=== PATIENT | male | born 1940 | race Caucasian/White ===

== ENCOUNTER 2018-01-21 11:56 | Outpatient (CLI) | payer MEDICARE ==
--- NOTE | 2018-01-21 13:02 | XRAY Report ---
Reason: TRAUMA PAIN, DECREASE ROM Procedure Date: 01/21/2018 Accession Number: [id number] / [id number] Procedure: XR - Hand 3 View LT CPT Code: FULL RESULT: EXAM: LEFT HAND RADIOGRAPHY EXAM DATE: 01/21/2018 12:36 PM. CLINICAL HISTORY: Trauma pain, decrease range of motion. COMPARISON: XR HAND 2 VIEW 08/16/2006 9:50 AM. TECHNIQUE: 3 views. FINDINGS: Bones: There is no acute fracture, dislocation or subluxation. Joints: There is degenerative joint space narrowing and mild osteophyte of the IP and DIP joints of the digits with prominent involvement of the IP joint of the second digit. There is degenerative joint space narrowing at the base of thumb and of the STT joint. Soft Tissues: There is mild focal soft tissue swelling noted around the second digit IP joint. There is a stable particulate radiopaque foreign body in the thenar soft tissues. IMPRESSION: 1. No acute fracture. 2. Degenerative changes with greatest involvement of the second digit IP joint likely explaining chronic finger pain. RADIA
== END 2018-01-21 11:57 | disposition home or self-care (01) ==
LOC: DI 11:56
PROVIDERS: ATTEND Physician Assistant
DX: M19.042 Primary osteoarthritis, left hand (principal)

== ENCOUNTER 2019-03-16 09:25 | Outpatient (CLI) | payer MEDICARE, OTHER ==
[2019-03-16] MEDS ORDERED: IOVERSOL 320 100 ML VIAL IVP ONE ×2 (09:34→11:04)
[2019-03-16] MEDS ORDERED: IOVERSOL 320 50 ML VIAL ONE (09:34)
[2019-03-16 09:52] LABS: CREATININE 1.2 mg/dL (0.6-1.2)
[2019-03-16] MEDS ORDERED: IOVERSOL 320 50 ML VIAL PO ONE (11:04)
--- NOTE | 2019-03-16 13:29 | CT Report ---
Reason: PROSTATE CANCER Procedure Date: 03/16/2019 Accession Number: [id number] / [id number] Procedure: CT - Abdomen/Pelvis W CPT Code: Final Report FULL RESULT: EXAM: CT ABDOMEN AND PELVIS EXAM DATE: 03/16/2019 11:00 AM. CLINICAL HISTORY: Prostate cancer. COMPARISONS: None. TECHNIQUE: Routine helical CT imaging was performed through the abdomen and pelvis. IV contrast: OPTI 320, 100 mL. Enteric contrast: Yes. Reconstructions: Coronal and sagittal. In accordance with CT protocol optimization, one or more of the following dose reduction techniques were utilized for this exam: automated exposure control, adjustment of mA and/or KV based on patient size, or use of iterative reconstructive technique. FINDINGS: Lung Bases: There is a 0.7 cm nodule at the right lung base. Liver: Normal. No masses. Gallbladder/Bile Ducts: Unremarkable. Spleen: Normal. Pancreas: Normal. Adrenal Glands: Normal. Kidneys: Mild bilateral cortical thinning without hydronephrosis or calculi detected. There is a left renal cyst as well as a left renal hypodensity which is too small to characterize. Peritoneal Cavity/Bowel: There is a large hiatal hernia. There is no bowel obstruction. There is no free fluid or free air. A 5 mm retroperitoneal nodule anterior to the left iliac vasculature as seen on image 63 series 3 is nonspecific and does not meet size criteria. There is no lymphadenopathy by size criteria. The appendix is well visualized and normal. Pelvic Organs: A few bilateral iliac lymph nodes are seen which measure less than 1 cm short axis. The prostate is partially calcified enlarging size lifting the bladder base. Vasculature: Mild to moderate abdominal atherosclerosis without overt aneurysm. Bones: No aggressive osseous lesions are detected. Other: None. IMPRESSION: Right lung base nodule, 0.7 cm. Nonspecific 5 mm nodule in the pelvic retroperitoneum without lymphadenopathy by size criteria. RADIA
--- NOTE | 2019-03-16 16:51 | Nuclear Medicine Report ---
Reason: PROSTATE CANCER Procedure Date: 03/16/2019 Accession Number: [id number] / [id number] Procedure: NM - Bone Whole Body CPT Code: Final Report FULL RESULT: EXAM: BONE SCAN EXAM DATE: 03/16/2019 02:20 PM. CLINICAL HISTORY: Prostate cancer. COMPARISON: ABDOMEN/PELVIS W/ 03/16/2019 11:00 AM. TECHNIQUE: Following the intravenous administration of 33.7 mCi of technetium 99m MDP and an appropriate delay, a whole-body scan was performed in anterior and posterior projections. Site-specific spot views of the region of interest were obtained in various projections. FINDINGS: Exam Quality: Normal overall osseous radiotracer uptake. Physiological tracer uptake in bilateral collecting systems. Skull: No focal uptake. Thorax: No focal lesions in ribs or sternum. Pelvis: No suspicious focal lesions. Mildly heterogeneous tracer uptake along the inferior bilateral sacroiliac joints, nonspecific and likely degenerative. Spine: There is linear increased uptake at several levels in the thoracic and lumbar spine as well as the lower cervical spine, most consistent with degenerative disk disease. There is a small focus of presumed degenerative facet uptake on the left side of the cervical spine. Extremities: Focal areas of increased uptake at the base of thumbs, right wrist, lateral right knee, bilateral ankles, bilateral sternoclavicular joints, and sternomanubrial joint are presumably degenerative. IMPRESSION: No scintigraphic findings highly concerning for skeletal metastatic disease. RADIA
== END 2019-03-16 09:26 | disposition home or self-care (01) ==
LOC: DI 09:25
PROVIDERS: ATTEND Specialist
DX: C61 Malignant neoplasm of prostate (principal); R91.1 Solitary pulmonary nodule; R19.04 Left lower quadrant abdominal swelling, mass and lump
CPT/HCPCS: 36415; 74177; 78306; 82565; 84520; Q9967

== ENCOUNTER 2022-08-05 11:06 | Outpatient (CLI) | payer MEDICARE, OTHER ==
--- NOTE | 2022-08-05 15:48 | XRAY Report ---
PROCEDURE: Lumbar Spine 2 View INDICATIONS: RIGHT SIDE SCIATICA TECHNIQUE: 3 views of the lumbar spine were acquired. COMPARISON: CT abdomen pelvis 03/16/2019 FINDINGS: Bones: 5 [id number] vertebrae are present. Mild left convexity curvature centered at L3-L4. No lumbar vertebral body compression fracture identified. Severe multilevel degenerative changes with d isc height loss, endplate spurring, and facet arthropathy. Soft tissues: Overlying bowel gas pattern is normal. Vascular calcifications are present. IMPRESSION: Multilevel degenerative changes of the lumbar spine. Reviewed by: Jose Luis Sloan MD on 08/05/2022 3:47 PM PDT Approved by: Jose Luis Sloan MD on 08/05/2022 3:47 PM PDT Station ID: [id number]
--- NOTE | 2022-08-05 15:54 | XRAY Report ---
PROCEDURE: Knee 3 View RT INDICATIONS: PAIN OF RIGHT KNEE JOINT TECHNIQUE: 3 views of the right knee(s) were acquired. COMPARISON: None. FINDINGS: Bones: No fractures or dislocations. No suspicious bony lesions. Definite osteophytes and possibl e narrowing of joint space. This is tricompartmental. Soft tissues: No definite knee joint effusion. No suspicious soft tissue calcifications . IMPRESSION: No acute bony abnormality. If there remains a high clinical concern for fracture, consider cross-sect ional imaging now. If pain persists, consider repeat x-ray in 10-14 days or cross-sectional imaging. Tricompartmental Kellgren-Cirilo scale of osteoarthritis: Grade 1-2: mild osteoarthritis. Reviewed by: Jose Luis Sloan MD on 08/05/2022 3:52 PM PDT Approved by: Jose Luis Sloan MD on 08/05/2022 3:52 PM PDT Station ID: [id number]
== END 2022-08-05 11:07 | disposition home or self-care (01) ==
LOC: DI.S 11:06
PROVIDERS: ATTEND Registered Nurse
DX: M17.11 Unilateral primary osteoarthritis, right knee (principal); M47.816 Spondylosis without myelopathy or radiculopathy, lumbar region

== ENCOUNTER 2023-04-11 13:27 | Emergency (ER) | payer MEDICARE, OTHER ==
--- NOTE | 2023-04-11 13:41 | ED Physician Documentation ---
PD HPI FOCAL NEURO - Stated complaint Stated Complaint: WEAKNESS, ARM/LEG - Chief complaint Chief Complaint: Neuro - History obtained from History obtained from: Patient - Additional information Additional information: 83-year-old gentleman with history of hypertension, prostate cancer, and a bad knee presents with strokelike symptoms starting at 1030 this morning. He became weak on the left side and could not walk. He denies headache with this. No history of stroke, diabetes, or heart disease. PD PAST MEDICAL HISTORY - Past Medical History Past Medical History: Yes - Past Surgical History Past Surgical History: No - Allergies Allergies/Adverse Reactions: Allergies Allergy/AdvReac Type Severity Reaction Status Date / Time Penicillins Allergy Anaphylaxis Verified 04/11/23 13:32 - Social History Does the pt smoke?: No Smoking Status: Never smoker Does the pt drink ETOH?: No Does the pt have substance abuse?: No - Immunizations Immunizations are current?: Yes - POLST Patient has POLST: No PD ED PE NORMAL - Vitals Vital signs reviewed: Yes - General General: Alert and oriented X 3, No acute distress - HEENT HEENT: PERRL, EOMI - Neck Neck: Supple, no meningeal sign, No bony TTP - Cardiac Cardiac: Other (Irregularly irregular without murmur) - Respiratory Respiratory: No respiratory distress, Clear bilaterally - Abdomen Abdomen: Non tender - Neuro Neuro: Alert and oriented X 3, corporate claims examiner 2-12 intact, No motor deficit, No sensory deficit, Normal speech, Other (He has ataxia on finger-nose testing and left qwap-ly-bgui testing) Eye Opening: Spontaneous Motor: Obeys Commands Verbal: Oriented GCS Score: 15 NIHSS - Time Time: 13:50 - Level of Consciousness Level of consciousness: (0) Alert, Keenly responsive LOC Questions: (0) Answers both Q's correct LOC Commands: (0) Performs both correctly - Gaze Best Gaze: (0) Normal - Visual Visual: (0) No loss - Facial Palsy Facial Palsy: (0) Normal, symmetrical movement - Motor Arms (both separate) Motor Arm (right): (0) No drift Motor Arm (left): (0) No drift - Motor Legs (both separate) Motor Leg (right): (0) No drift Motor Leg (left): (0) No drift - Limb Ataxia Limb Ataxia: (2) Present in 2 limbs - Sensory Sensory: (0) Normal - Best Language Best Language: (0) No aphasia - Dysarthria Dysarthria: (0) Normal - Extinction and Inattention (formally neg Extinction and inattention: (0) No abnormality - Total Score/Results Total Score/Result: 2 Results - Vitals Vitals: Vital Signs - 24 hr 04/11/23 04/11/23 04/11/23 13:33 13:40 14:31 Temperature 36.8 C Heart Rate 88 98 94 Respiratory 16 26 H 22 Rate Blood Pressure 149/86 H 154/97 H 146/89 H O2 Saturation 96 94 93 Oxygen O2 Source Room air - EKG (time done) 1500 EKG releavant findings:: EKG personally interpreted by author of this note. Relevant findings are: Rate: Rate (enter#) (95) Rhythm: NSR (w pvc) [place]: Normal Intervals: Normal CA QRS: Normal Ischemia: Non specific changes - Labs Labs: Laboratory Tests 04/11/23 04/11/23 04/11/23 13:55 13:55 13:55 WBC 8.9 RBC 4.98 Hgb 15.5 Hct 47.8 MCV 96.0 H MCH 31.1 H MCHC 32.4 RDW 12.3 Plt Count 325 MPV 9.3 Neut # (Auto) 5.7 Lymph # (Auto) 2.2 [place] # (Auto) 0.9 Eos # (Auto) 0.1 Baso # (Auto) 0.0 Absolute Nucleated RBC 0.00 Nucleated RBC % 0.0 PT 11.9 INR 1.1 Sodium 139 Potassium 4.3 Chloride 103 Carbon Dioxide 28 Anion Gap 8.0 BUN 20 Creatinine 1.0 Estimated GFR (MDRD) 71 L Glucose 76 Calcium 9.7 Total Bilirubin 0.4 AST 22 ALT 17 Alkaline Phosphatase 78 Total Protein 7.7 Albumin 4.4 Globulin 3.3 Albumin/Globulin Ratio 1.3 Lipase 30 Nasal Adenovirus (PCR) Nasal B. parapertussis DNA (PCR) Nasal Coronavir 229E PCR Nasal Coronavir HKU1 PCR Nasal Coronavir NL63 PCR Nasal Coronavir OC43 PCR Nasal Enterovir/Rhinovir PCR Nasal Influenza B PCR Nasal Influenza A PCR Nasal Parainfluen 1 PCR Nasal Parainfluen 2 PCR Nasal Parainfluen 3 PCR Nasal Parainfluen 4 PCR Nasal RSV (PCR) Nasal B.pertussis DNA PCR Nasal C.pneumoniae (PCR) Kyle Human Metapneumo PCR Nasal M.pneumoniae (PCR) Nasal SARS-CoV-2 (PCR) 04/11/23 14:40 WBC RBC Hgb Hct MCV MCH MCHC RDW Plt Count MPV Neut # (Auto) Lymph # (Auto) [place] # (Auto) Eos # (Auto) Baso # (Auto) Absolute Nucleated RBC Nucleated RBC % PT INR Sodium Potassium Chloride Carbon Dioxide Anion Gap BUN Creatinine Estimated GFR (MDRD) Glucose Calcium Total Bilirubin AST ALT Alkaline Phosphatase Total Protein Albumin Globulin Albumin/Globulin Ratio Lipase Nasal Adenovirus (PCR) NOT DETECTED Nasal B. parapertussis DNA (PCR) NOT DETECTED Nasal Coronavir 229E PCR NOT DETECTED Nasal Coronavir HKU1 PCR NOT DETECTED Nasal Coronavir NL63 PCR NOT DETECTED Nasal Coronavir OC43 PCR NOT DETECTED Nasal Enterovir/Rhinovir PCR NOT DETECTED Nasal Influenza B PCR NOT DETECTED Nasal Influenza A PCR NOT DETECTED Nasal Parainfluen 1 PCR NOT DETECTED Nasal Parainfluen 2 PCR NOT DETECTED Nasal Parainfluen 3 PCR NOT DETECTED Nasal Parainfluen 4 PCR NOT DETECTED Nasal RSV (PCR) NOT DETECTED Nasal B.pertussis DNA PCR NOT DETECTED Nasal C.pneumoniae (PCR) NOT DETECTED Kyle Human Metapneumo PCR NOT DETECTED Nasal M.pneumoniae (PCR) NOT DETECTED Nasal SARS-CoV-2 (PCR) NOT DETECTED - Rads (name of study) CT of the head and CT of the head were negative for bleed or LVO Relevant Findings:: Final report received, EMP independent interpretation of test PD Medical Decision Making - ED course ED course: 83-year-old gentleman presents with strokelike symptoms with ataxia on the left. Also clinically new in A-fib. Plain CT without evidence of bleeding and telestroke neurologist, Dr. Seth Ferro saw him and we examined him together and the patient consented for TNK. TNK bolus in at 1430, looking for transport to tertiary facility with neuro ICU for post TNK care. 1500: Clinically I thought he was probably in A-fib given the irregularity of his clinical examination, but EKG actually shows frequent PVCs instead. He has been accepted to [facility] in [place] by Dr. Ham Rice box toe cutter there. - Critical Care Time(min): 40 Time Includes: Direct patient care, Review records, Reassess patient, Document care, Coordinate care, Medical consult, Family consult for tx dec Data interpretation: Labs, Pulse ox Procedures included in critical care time: Peripheral IV Procedures excluded from critical care time: EKG Departure - Departure Disposition: 02 Transfer Acute Care Hosp Clinical Impression: Cerebrovascular accident (CVA) Condition: Serious Forms: PCP List
[2023-04-11 14:09] LABS: BASOPHILS % (AUTO) 0.4 %; EOSINOPHILS # (AUTO) 0.1 10^3/uL (0.0-0.7); EOSINOPHILS % (AUTO) 1.1 %; HCT - HEMATOCRIT 47.8 % (42.0-52.0); HGB - HEMOGLOBIN 15.5 g/dL (14.0-18.0); LYMPHOCYTES # (AUTO) 2.2 10^3/uL (1.5-3.5); LYMPHOCYTES % (AUTO) 24.3 %; MEAN CORPUSCULAR HEMOGLOBIN 31.1 pg (27.0-31.0); MEAN CORPUSCULAR HGB CONC 32.4 g/dL (32.0-36.0); MEAN PLATELET VOLUME 9.3 fL (7.4-11.4); MONOCYTES # (AUTO) 0.9 10^3/uL (0.0-1.0); NEUTROPHILS # (AUTO) 5.7 10^3/uL (1.5-6.6); PLT - PLATELET COUNT 325 10^3/uL (130-450); RED BLOOD COUNT 4.98 10^6/uL (4.70-6.10); RED CELL DISTRIBUTION WIDTH 12.3 % (12.0-15.0); WHITE BLOOD COUNT 8.9 x10^3/uL (4.8-10.8)
[2023-04-11] MEDS ORDERED: TENECTEPLASE 50 MG/10 ML VIAL IVP STA (14:14)
[2023-04-11] MEDS ORDERED: iohexoL-300 100 ML VIAL ONE (14:15)
[2023-04-11 14:17] LABS: INR 1.1 (0.8-1.2); PT - PROTHROMBIN TIME 11.9 secs (9.9-12.6)
--- NOTE | 2023-04-11 14:22 | CT Report ---
PROCEDURE: Head W/O Stroke Protocol INDICATIONS: Neuro deficit, acute, stroke suspected TECHNIQUE: Noncontrast 4.5 mm thick angled axial sections acquired from the foramen magnum to the vertex, with c oronal reformats. For radiation dose reduction, the following was used: automated exposure control, adjustment of mA and/or kV according to patient size. COMPARISON: Correlation is made with the accompanying imaging. FINDINGS: Image quality: Excellent. CSF spaces: Basal cisterns are patent. No extra-axial fluid collections. Ventricles are normal in size and shape. Brain: No midline shift. No intracranial masses or hemorrhage. [place]bar[place]-white matter interface is norm al. Skull and face: Calvarium and visualized facial bones are intact, without suspicious lesions. Sinuses: Visualized sinuses and mastoids are clear. IMPRESSION: No intracranial hemorrhage is seen. No significant intracranial abnormality is seen. Note: Dr. Barrera was not available to discuss this case at the time of this dictation. Findings relay ed to Dr. Barrera ER staff, [place], at 2:19 PM [place] time on 04/11/2023. This study fulfills neurological imaging criteria for inclusion or exclusion of acute stroke therapie s based on available published neurological imaging guidelines. Reviewed by: Josue Cordero MD on 04/11/2023 1:20 PM [facility] Approved by: Josue Cordero MD on 04/11/2023 1:20 PM [facility] Station ID: [id number]
--- NOTE | 2023-04-11 14:24 | CT Report ---
PROCEDURE: Angio Head/Neck INDICATIONS: CVA sx TECHNIQUE: After the administration of intravenous contrast, 1 mm thick sections acquired from the aortic arch t hrough the [place]. 3-dimensional hrbwhws-bcoyinzhh-jdxfitccvy (MIP) and/or volume renderin g reformats were acquired of the central intracranial vasculature and neck separately. For radiation dose reduction, the following was used: automated exposure control, adjustment of mA and/or kV acco rding to patient size. CONTRAST: 80ml omni 300 COMPARISON: Correlation is made with the accompanying imaging. FINDINGS: Image quality: Diagnostic. HEAD CT: CSF Spaces: Basal cisterns are patent. No extra-axial fluid collections. Ventricles are normal in size and shape. Brain: No significant abnormality is seen for scanning technique. Skull and face: Calvarium and visualized facial bones appear intact, without suspicious lesions. Sinuses: Visualized sinuses and mastoids are clear. HEAD CT ANGIOGRAPHY: Anterior circulation: Intracranial internal carotid arteries are normal in size and flow. The flow within the paired anterior cerebral arteries is normal and symmetric. The flow within the middle cer ebral arteries is normal and symmetric. The anterior communicating artery is seen. No aneurysms are seen. Posterior circulation: The left V4 segment is within normal limits. The right V4 segment largely ter minates in the right posterior inferior cerebellar artery. There is a normal appearing basilar artery . The flow within the posterior cerebral arteries is normal and symmetric. No stenoses, occlusions, or aneurysms. NECK CT ANGIOGRAPHY: Carotid system: The great vessels demonstrate a conventional anatomy as they arise from the aortic a rch. The origins of the common carotid arteries appear patent. The common carotid arteries demonstr ate normal caliber. The proximal common carotid arteries demonstrate tortuosity. The bifurcation reg ions are both widely patent. The internal carotid arteries demonstrate normal calibers. Moderate to rtuosity can be seen involving the internal carotid arteries. Posterior circulation: The origins of the vertebral arteries both appear widely patent. The more green perior extracranial portions of both vertebral arteries also demonstrate normal courses and calibers. They join to form a normal appearing basilar artery. Soft tissues: Visualized neck soft tissues demonstrate no suspicious abnormalities. Mild groundglas s opacity can be seen involving the left lung apex. Bones: No suspicious bony lesions. Visualized cervical spine appears normally aligned. At least mo derate cervical spine degenerative change can be seen. IMPRESSION: No significant intracranial arterial abnormality is seen. No significant abnormality is seen within the arteries of the neck. 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
[2023-04-11 14:26] LABS: ALBUMIN 4.4 g/dL (3.2-5.5); ALBUMIN/GLOBULIN RATIO 1.3 (1.0-2.2); BILIRUBIN,TOTAL 0.4 mg/dL (0.2-1.0); CALCIUM 9.7 mg/dL (8.5-10.3); POTASSIUM 4.3 mmol/L (3.5-4.5); TOTAL PROTEIN 7.7 g/dL (6.4-8.9)
[2023-04-11 14:37] VITALS: BP 146/89; O2SAT 93
[2023-04-11] MEDS ORDERED: iohexoL-300 100 ML VIAL IVP ONE (15:11)
[2023-04-11 15:38] LABS: CORONAVIRUS 229E-RESP PCR NOT DETECTED; CORONAVIRUS HKU1-RESP PCR NOT DETECTED; CORONAVIRUS NL63-RESP PCR NOT DETECTED; CORONAVIRUS OC43-RESP PCR NOT DETECTED; SARS-CoV-2 -RESP PCR PANEL NOT DETECTED
[2023-04-11 15:39] LABS: B. PARAPERTUSSIS- RESP PCR PAN NOT DETECTED; B. PERTUSSIS- RESP PCR PANEL NOT DETECTED; C. PNEUMONIAE- RESP PCR PANEL NOT DETECTED; HUMAN METAPNEUMOVIRUS NOT DETECTED; INFLUENZA A- RESP PCR PANEL NOT DETECTED; INFLUENZA B - RESP PCR PANEL NOT DETECTED; M. PNEUMONIAE- RESP PCR PANEL NOT DETECTED; PARAINFLUENZA VIRUS 1 NOT DETECTED; PARAINFLUENZA VIRUS 2 NOT DETECTED; PARAINFLUENZA VIRUS 3 NOT DETECTED; PARAINFLUENZA VIRUS 4 NOT DETECTED; RHINOVIRUS/ENTEROVIRUS NOT DETECTED; RSV- RESP PCR PANEL NOT DETECTED
== END 2023-04-11 16:11 | disposition short-term general hospital (02) ==
LOC: ED 13:27
DX: I63.9 Cerebral infarction, unspecified (principal)
CPT/HCPCS: 36415; 37195; 70450; 70496; 70498; 80053; 83690; 85025; 85610; 87633; 93005; 99291; Q9967

== ENCOUNTER 2023-11-12 12:58 | Outpatient (CLI) | payer MEDICARE, OTHER | END 2023-11-12 12:59 | disposition short-term general hospital (02) | LOC: EMS 12:58 | DX: M25.551 Pain in right hip (principal); M79.651 Pain in right thigh; W01.0XXA Fall on same level from slipping, tripping and stumbling without subsequent striking against object, initial encounter; Y93.H9 Activity, other involving exterior property and land maintenance, building and construction; Y92.008 Other place in unspecified non-institutional (private) residence as the place of occurrence of the external cause; Z96.641 Presence of right artificial hip joint; Z79.01 Long term (current) use of anticoagulants | CPT/HCPCS: A0425; A0427 ==